=== PATIENT | male | born 1990 | race African-American/Black ===

== ENCOUNTER 2024-09-25 22:22 | Emergency (ER) | payer BC ==
[2024-09-25] MEDS ORDERED: dexAMETHasone 10 MG/ML VIAL ONE (23:08)
[2024-09-25] MEDS ORDERED: CYCLOBENZAPRINE 10 MG TAB ONE (23:09)
[2024-09-25] MEDS ORDERED: KETOROLAC 30 MG/ML INJ ONE (23:09)
[2024-09-25] MEDS ORDERED: HYDROCODONE/APAP 7.5/325 MG TAB ONE (23:10)
--- NOTE | 2024-09-26 00:46 | EDPHYS ---
Physician Documentation [facility] Name: Ryan Del Castillo Age: 34 yrs Sex: Male : 1990 Arrival Date: 09/25/2024 Time: 22:22 Bed 16 Private MD: ED Physician Sidney Nunez HPI: 09/26 00:58 This 34 yrs old Black Male presents to ER via Wheelchair with complaints of Back Pain. sb4 00:59 Patient reports low back pain that began yesterday and has not improved. He states that sb4 he has gotten this pain intermittently over the past few years, but it has never been this bad. Has taken Tylenol without significant improvement in symptoms. States that he has had negative x-rays in the past. He has seen a chiropractor which did help his symptoms greatly in the past. He denies any radiation of pain, no numbness, tingling, saddle paresthesia, bowel or bladder incontinence. Historical: - Allergies: 09/25 22:43 No Known Allergies; me1 - Home Meds: 22:43 lisinopril/hctz [Active]; me1 - PMHx: 22:43 Hypertensive disorder; me1 - PSHx: 22:43 None; me1 - Immunization history:: Adult Immunizations up to date. - Infectious Disease History:: Denies. - Social history:: Smoking status: Patient denies any tobacco usage or history of. ROS: 09/26 00:59 Constitutional: Negative for fever, chills, and weight loss, sb4 Back: Positive for pain at rest, pain with movement, of the sacrum, left low back and right low back, All other systems are negative, Exam: 00:59 Head/Face: Normocephalic, atraumatic. Eyes: Extra-ocular motions intact. Periorbital sb4 areas with no swelling, redness, or edema. ENT: Mucous membranes moist. Skin: Warm, dry with normal turgor. Normal color with no rashes, no lesions, and no evidence of cellulitis. 00:59 Constitutional: The patient appears alert, awake, uncomfortable, 00:59 Back: pain, that is moderate, of the left low back and right low back, ROM is painful, normal spinal alignment noted, CVA tenderness, is absent, pain with palpation bilateral SI joints, 00:59 Neuro: Motor: is normal, moves all fours, Sensation: is normal, Gait: is steady, at a normal pace, without difficulty, seizure activity, is not displayed by the patient, Vital Signs: 09/25 22:42 BP 183 / 117; Pulse 96; Resp 18; Temp 98.8; Pulse Ox 97% ; Weight 120.2 kg; Height 6 me1 ft. 1 in. ; Pain 9/10; 23:01 BP 163 / 127; Pulse 83; Pulse Ox 98% on R/A; kj2 09/26 01:09 BP 145 / 89; Pulse 84; Resp 18; Temp 98; Pulse Ox 100% on R/A; kj2 09/25 22:42 Body Mass Index 34.96 (120.20 kg, 185.42 cm) me1 09/25 22:42 Pain Scale: Adult me MDM: 09/25 22:34 Medical Screening Exam initiated sb4 09/26 00:59 Data reviewed: vital signs, nurses notes, radiologic studies, and as a result, I will sb4 discharge patient. Historians other than the Patient: Spouse/Significant Other: . Counseling: I had a detailed discussion with the patient and/or guardian regarding the historical points, exam findings, and any diagnostic results supporting the discharge/admit diagnosis, the presence of at least one elevated blood pressure reading (>120/80) during this emergency department visit, radiology results, the need for outpatient follow up, a chiropractor, spine, to return to the emergency department if symptoms worsen or persist or if there are any questions or concerns that arise at home. 09/25 22:58 Order name: Lumbar Spine (3 Views) XRAY sb4 09/25 22:58 Order name: Sacrum And Coccyx XRAY sb4 Administered Medications: 09/25 23:20 Drug: Dexamethasone IM 10 mg IM once Route: IM; Site: left deltoid; kj09/26 01:08 Follow up: Response: No adverse reaction 09/25 23:20 Drug: Cyclobenzaprine PO 10 mg PO once Route: PO; kj2 09/26 01:08 Follow up: Response: No adverse reaction 09/25 23:20 Drug: Hydrocodone-Acetaminophen PO (7.5 mg-325 mg) 1 tabs PO once Route: PO; kj2 09/26 01:08 Follow up: Response: No adverse reaction kj2 09/25 23:21 Drug: Ketorolac IM 30 mg IM once Route: IM; Site: right vastus lateralis; kj2 09/26 01:08 Follow up: Response: No adverse reaction kj2 Disposition: 23:36 Co-signature as Attending Physician, Sidney Nunez MD I agree with the assessment sp4 and plan of care. I reviewed the patient's care provided by the Advanced Practice Provider and agree with the diagnosis and treatment plan. Disposition Summary: 09/26/24 00:45 Discharge Ordered Notes: Location: Home sb4 Problem: an acute exacerbation sb4 Symptoms: have improved sb4 Condition: Stable sb4 Diagnosis - Low back pain sb4 - Sacroiliitis, not elsewhere classified sb4 Followup: sb4 - With: Private Physician - When: 1 week - Reason: Further diagnostic work-up, Recheck today's complaints, Re-evaluation by your physician Discharge Instructions: - Discharge Summary Sheet sb4 - Acute Back Pain, Adult sb4 - Sacroiliac Joint Dysfunction sb4 Forms: - Patient Portal Instructions sb4 - Leadership Thank You Letter sb4 Prescriptions: - Cyclobenzaprine 10 mg Oral Tablet - take 1 tablet ORAL route every 8 hours As needed; 30 tablet; Refills: 0, sb4 Product Selection Permitted - Diclofenac Sodium 75 mg Oral Tablet Sustained Release - take 1 tablet ORAL route 2 times per day; 30 tablet; Refills: 0, Product sb4 Selection Permitted - Prednisone 20 mg Oral Tablet - take 2 tablets ORAL route once daily for 5 days; 10 tablet; Refills: 0, Product sb4 Selection Permitted Signatures: Dispatcher [employer] EDRaine Small PA-C PASirena sb4 Sidney Nunez MD MD sp4 May Ny RN RN me1 Elena Ibarra RN RN kj2 Corrections: (The following items were deleted from the chart) 09/25 22:59 22:59 Sacrum And Coccyx+RAD.RAD.BRZ ordered. EDTX LAZARAMS
--- NOTE | 2024-09-26 00:46 | ER ---
Nurse's Notes [facility] Name: Ryan Del Castillo Age: 34 yrs Sex: Male : 1990 Arrival Date: 09/25/2024 Time: 22:22 Bed 16 Private MD: Diagnosis: Low back pain;Sacroiliitis, not elsewhere classified Presentation: 09/25 22:42 Chief complaint: Patient states: c/o lower back pain that started 2 days ago and got me1 worse. 07/07. Denies injury. Coronavirus screen: Vaccine status: Patient reports receiving the 2nd dose of the covid vaccine. Ebola Screen: No symptoms or risks identified at this time. Initial Sepsis Screen: Does the patient meet any 2 criteria? No. Patient's initial sepsis screen is negative. Does the patient have a suspected source of infection? No. Patient's initial sepsis screen is negative. Risk Assessment: Do you want to hurt yourself or someone else? Patient reports no desire to harm self or others. Onset of symptoms was September 23, 2024. 22:42 Method Of Arrival: Wheelchair me1 22:42 Acuity: ADINA 3 me1 Historical: - Allergies: 22:43 No Known Allergies; me1 - Home Meds: 22:43 lisinopril/hctz [Active]; me1 - PMHx: 22:43 Hypertensive disorder; me1 - PSHx: 22:43 None; me1 - Immunization history:: Adult Immunizations up to date. - Infectious Disease History:: Denies. - Social history:: Smoking status: Patient denies any tobacco usage or history of. Screenin:55 [facility] ED Fall Risk Assessment (Adult) History of falling in the last 3 months, kj2 including since admission No falls in past 3 months (0 pts) Confusion or Disorientation No (0 pts) Intoxicated or Sedated No (0 pts) Impaired Gait No (0 pts) Mobility Assist Device Used No (0 pt) Altered Elimination No (0 pt) Score/Fall Risk Level 0 - 2 = Low Risk Maintained a safe environment, Hourly rounding (assess needs \T\ fall precautionary measures) done. Abuse screen: Denies threats or abuse. Denies injuries from another. Nutritional screening: No deficits noted. Tuberculosis screening: No symptoms or risk factors identified. Assessment: 22:59 General: Appears in no apparent distress. uncomfortable, Behavior is cooperative. Pain: kj2 Complains of pain in back pain Pain currently is 9 out of 10 on a pain scale. Neuro: Level of Consciousness is awake, alert, Oriented to person, place, time, situation. Cardiovascular: Patient's skin is warm and dry. Respiratory: Airway is patent Respiratory effort is unlabored. GI: No signs and/or symptoms were reported involving the gastrointestinal system. : No signs and/or symptoms were reported regarding the genitourinary system. 09/26 00:00 Reassessment: Patient appears in no apparent distress at this time. Patient and/or kj2 family updated on plan of care and expected duration. Pain level reassessed. Patient is alert, oriented x 3, equal unlabored respirations, skin warm/dry/pink. 01:09 Reassessment: Patient appears in no apparent distress at this time. Patient and/or kj2 family updated on plan of care and expected duration. Pain level reassessed. Patient is alert, oriented x 3, equal unlabored respirations, skin warm/dry/pink. Vital Signs: 09/25 22:42 BP 183 / 117; Pulse 96; Resp 18; Temp 98.8; Pulse Ox 97% ; Weight 120.2 kg; Height 6 me1 ft. 1 in. ; Pain 9/10; 23:01 BP 163 / 127; Pulse 83; Pulse Ox 98% on R/A; kj2 09/26 01:09 BP 145 / 89; Pulse 84; Resp 18; Temp 98; Pulse Ox 100% on R/A; kj2 09/25 22:42 Body Mass Index 34.96 (120.20 kg, 185.42 cm) nd1 09/25 22:42 Pain Scale: Adult nd1 ED Course: 09/25 22:24 Patient arrived in ED. mr 22:25 Raine Gloria PA-C [facility]. sb4 22:25 Sidney Nunez MD is Attending Physician. sb4 22:43 Triage completed. me1 22:43 Arm band placed on Patient placed in an exam room. me1 22:59 Elena Ibarra, RN is Primary Nurse. kj2 23:04 Patient has correct armband on for positive identification. Adult w/ patient. Provided kj2 Education on: call light. 23:45 Lumbar Spine (3 Views) XRAY In Process Unspecified. EDMS 23:45 Sacrum And Coccyx XRAY In Process Unspecified. EDMS 09/26 01:12 Patient did not have IV access during this emergency room visit. kj2 01:12 No provider procedures requiring assistance completed. kj2 Administered Medications: 09/25 23:20 Drug: Dexamethasone IM 10 mg IM once Route: IM; Site: left deltoid; kj2 09/26 01:08 Follow up: Response: No adverse reaction kj2 09/25 23:20 Drug: Cyclobenzaprine PO 10 mg PO once Route: PO; kj2 09/26 01:08 Follow up: Response: No adverse reaction kj2 09/25 23:20 Drug: Hydrocodone-Acetaminophen PO (7.5 mg-325 mg) 1 tabs PO once Route: PO; kj2 09/26 01:08 Follow up: Response: No adverse reaction kj2 09/25 23:21 Drug: Ketorolac IM 30 mg IM once Route: IM; Site: right vastus lateralis; kj2 09/26 01:08 Follow up: Response: No adverse reaction kj2 Medication: 09/25 23:04 VIS not applicable for this client. kj2 Outcome: 09/26 00:45 Discharge ordered by . sb4 01:12 Discharged to home via wheelchair, kj2 01:12 Condition: stable 01:12 Discharge instructions given to patient, Instructed on discharge instructions, follow up and referral plans. medication usage, Demonstrated understanding of instructions, follow-up care, medications, Prescriptions given X 3, 01:23 Patient left the ED. kj2 Signatures: Dispatcher [employer] EDFL Temi Long, Yfn Coulter Raine Gloria, PA-C PASirena sb4 May Ny, RN RN me1 Elena Ibarra, RN RN kj2
--- NOTE | 2024-09-26 00:51 | RAD REPORT ---
EXAM: XR Lumbosacral Spine, 2 or 3 Views CLINICAL HISTORY: Pain. TECHNIQUE: Frontal and lateral views of the lumbar spine and sacrum. COMPARISON: No relevant prior studies available. FINDINGS: Vertebrae: Transitional S1 vertebra. No acute fracture or subluxation. Sacrum/coccyx: Unremarkable as visualized. No acute fracture. Disc spaces: No acute findings. No significant narrowing. Soft tissues: Unremarkable. IMPRESSION: No acute injury. Electronically signed by: Kaylie Lima MD 09/26/2024 12:38 AM [facility] Due to temporary technical issues with the PACS/[employer] reporting system, reports are being marco d by the in-house radiologist without review as a courtesy to ensure prompt reporting the interpreting radiologist is fully responsible for the content of the report. Transcribed Date/Time: 09/26/2024 12:51 AM
--- NOTE | 2024-09-26 00:52 | RAD REPORT ---
EXAM: XR Sacrum and Coccyx, 2 or more Views CLINICAL HISTORY: SI joint pain. TECHNIQUE: Frontal and lateral views of the sacrum and coccyx. COMPARISON: No relevant prior studies available. FINDINGS: Sacrum/coccyx: Unremarkable as visualized. No acute fracture. Vertebrae: Visualized lumbar vertebrae are unremarkable. Soft tissues: Unremarkable. IMPRESSION: No acute injury. Electronically signed by: Kaylie Lima MD 09/26/2024 12:34 AM [facility] Due to temporary technical issues with the PACS/[employer] reporting system, reports are being marco d by the in-house radiologist without review as a courtesy to ensure prompt reporting the interpreting radiologist is fully responsible for the content of the report. Transcribed Date/Time: 09/26/2024 12:52 AM
[2024-09-26 06:43] VITALS: BP 145/89; TEMP 98; O2SAT 100
== END 2024-09-26 01:23 | disposition home or self-care (01) ==
LOC: ER 22:22
DX: M54.50 Low back pain, unspecified (principal); M46.1 Sacroiliitis, not elsewhere classified
CPT/HCPCS: 72100; 72220; 96372; 99284; J1100